=== PATIENT | male | born 1985 | race Asian ===

== ENCOUNTER 2017-11-06 20:54 | Emergency (ER) | payer MEDICARE, OTHER ==
[~2017-11-06] VITALS: Ht 162.6 cm; Wt 81.0 kg
[~2017-11-06 20:54] MED LIST: AMBI5TAB PO; HALO10 PO; HALO100P IM; LORA.5 PO; OXCA300 PO
[2017-11-06 21:01] VITALS: BP 135/90; PULSE 130; RESP 18; TEMP 98.3; O2SAT 100
[2017-11-07 02:47] LABS: AUTOMATED NEUTROPHIL # 9.3 TH/MM3 (1.8-7.7); BASOPHIL # 0.1 TH/MM3 (0-0.2); BASOPHIL % 0.6 % (0.0-2.0); EOSINOPHIL # 0.1 TH/MM3 (0-0.4); EOSINOPHIL % 0.4 % (0.0-4.0); HEMATOCRIT 45.4 % (39.0-51.0); HEMOGLOBIN 15.7 GM/DL (13.0-17.0); LYMPH % 15.9 % (9.0-44.0); LYMPHOCYTE # 2.1 TH/MM3 (1.0-4.8); MEAN CELL VOLUME 89.5 FL (80.0-100.0); MEAN CORPUSCULAR HGB CONC 34.7 % (32.0-36.0); MEAN PLATELET VOLUME 9.2 FL (7.0-11.0); MONO % 11.2 % (0.0-8.0); MONOCYTE # 1.4 TH/MM3 (0-0.9); NEUT % 71.9 % (16.0-70.0); PLATELET COUNT 298 TH/MM3 (150-450); RED BLOOD COUNT 5.07 MIL/MM3 (4.50-5.90); RED CELL DISTRIBUTION WIDTH 13.7 % (11.6-17.2); WHITE BLOOD COUNT 12.9 TH/MM3 (4.0-11.0)
--- NOTE | 2017-11-07 03:02 | RADRPT ---
EXAM DATE/TIME: 11/07/2017 02:28 [place] COMPARISON: No previous studies available for comparison. INDICATIONS : Short of breath and chest pain. MEDICAL HISTORY : Hypertension. SURGICAL HISTORY : None. ENCOUNTER: Initial ACUITY: 1 day PAIN SCORE: 9/10 LOCATION: Left chest FINDINGS: A single view of the chest demonstrates the lungs to be symmetrically aerated without evidence of mas s, infiltrate or effusion. The cardiomediastinal contours are unremarkable. Osseous structures are intact. CONCLUSION: No acute disease. Parag Alvarado MD on November 07, 2017 at 3:00 Board Certified Radiologist. This report was verified electronically.
--- NOTE | 2017-11-07 03:13 | PD ---
HPI Chief Complaint: Chest Pain Time Seen by Provider: 02:40 Travel History International Travel<30 days: No Contact w/Intl Traveler<30days: No Traveled to known affect area: No History of Present Illness HPI 32-year-old male presents to the emergency department for complaint of heart racing. Patient admits to history of schizophrenia and bipolar disorder and anxiety. Patient states his been taking his medications as prescribed. Patient denies any chest pain or shortness of breath. Patient denies any injury or fall. Patient denies any fever or chills. Patient presents to the emergency department because he was concerned that he might be having a heart attack. Patient denies any substance use. Patient does admit to increased and excessive caffeine use. No prior history of thyroid dysfunction. Patient rates his discomfort 0-2/10 in intensity. Patient's had no recent long distance travel, protracted bedrest, surgical procedure; no personal history or family history of connective tissue disorder or clotting disorder. Patient denies pleuritic chest pain and no hemoptysis. PFSH Past Medical History Narrative Medical Bipolar disorder schizophrenia hypertension no surgeries alcohol use tobacco use ; nursing notes reviewed Bipolar Disorder: Yes Depression: Yes Cardiovascular Problems: Yes (HTN) Diminished Hearing: No Genitourinary: No Headaches: Yes Musculoskeletal: No Neurologic: No Psychiatric: Yes (SCHIZOAFFECTIVE DISORDER) Reproductive: No Respiratory: No Immunizations Current: No Schizophrenia: Yes Past Surgical History Surgical History: No Previous Surgery Other Surgery: No Social History Alcohol Use: Yes (OCC) Tobacco Use: Yes (6 CIGARRETTES) Substance Use: No Allergies-Medications (Allergen,Severity, Reaction): Coded Allergies: divalproex sodium (Unverified Allergy, Severe, 11/06/17) milk (Unverified Adverse Reaction, Intermediate, DIARRHEA WITH COWS MILK, 11/06/17) Reported Meds & Prescriptions Reported Meds & Active Scripts Active Haldol (Decanoate) 100 mg Ampule (Haloperidol Decanoate) 100 Mg/Ml Inj 300 Mg IM Q28D Next dose of Haldol Dec due on 04/09/2016. Ambien (Zolpidem Tartrate) 5 Mg Tab 5 Mg PO HS PRN Haldol (Haloperidol) 10 Mg Tab 10 Mg PO BID 10 Days Continue oral Haldol until your next Haldol Decanoate injection or as instructed by your outpatient provider. Trileptal 300 Mg Tab (Oxcarbazepine) 300 Mg Tab 300 Mg PO BID 10 Days Lorazepam 0.5 Mg Tab 0.5 Mg PO DIRECTED Take 1 tablet by mouth twice daily. Also may take additional 1 tab daily as needed for anxiety/agitation. Note to pharmacist: Pt may fill the refill as early as 15 days from initial fill if PRN use has been required. Review of Systems Except as stated in HPI: all other systems reviewed are Neg General / Constitutional: No: Fever HENT: No: Headaches, Congestion Cardiovascular: Positive: Palpitations, Tachycardia, No: Chest Pain or Discomfort Respiratory: No: Shortness of Breath Gastrointestinal: No: Vomiting, Abdominal Pain Genitourinary: No: Flank Pain Musculoskeletal: No: Myalgias, Arthralgias Skin: No Rash Neurologic: No: Weakness Psychiatric: Positive: Anxiety Hematologic/Lymphatic: No: Lymph Node Enlargement Physical Exam Narrative GENERAL: Well-developed well-nourished male no acute distress no respiratory distress SKIN: Warm and dry. HEAD: Normocephalic. EYES: No scleral icterus. No injection or drainage. NECK: Supple, trachea midline. No JVD or lymphadenopathy. CARDIOVASCULAR: Regular rate and rhythm without murmurs, gallops, or rubs. RESPIRATORY: Breath sounds equal bilaterally. No accessory muscle use. GASTROINTESTINAL: Abdomen soft, non-tender, nondistended. MUSCULOSKELETAL: No cyanosis, or edema. BACK: Nontender without obvious deformity. No CVA tenderness. Data Data Last Documented VS Vital Signs Date Time Temp Pulse Resp B/P (MAP) Pulse Ox O2 Delivery O2 Flow Rate FiO2 11/06/17 21:01 98.3 130 18 135/90 (105) 100 Room Air Orders Orders Electrocardiogram (11/06/17 ) Chest, Single Ap (11/07/17 ) Complete Blood Count With Diff (11/07/17 02:05) Basic Metabolic Panel (Bmp) (11/07/17 02:05) Creatine Kinase (Cpk) (11/07/17 02:05) Troponin I (11/07/17 02:05) Thyroid Stimulating Hormone (11/07/17 02:05) Ed Discharge Order (11/07/17 04:01) Nitrofurantoin Monohyd Macrocr (Macrobid (11/07/17 04:15) Labs Laboratory Tests Test 11/07/17 02:05 White Blood Count 12.9 TH/MM3 Red Blood Count 5.07 MIL/MM3 Hemoglobin 15.7 GM/DL Hematocrit 45.4 % Mean Corpuscular Volume 89.5 FL Mean Corpuscular Hemoglobin 31.0 PG Mean Corpuscular Hemoglobin Concent 34.7 % Red Cell Distribution Width 13.7 % Platelet Count 298 TH/MM3 Mean Platelet Volume 9.2 FL Neutrophils (%) (Auto) 71.9 % Lymphocytes (%) (Auto) 15.9 % Monocytes (%) (Auto) 11.2 % Eosinophils (%) (Auto) 0.4 % Basophils (%) (Auto) 0.6 % Neutrophils # (Auto) 9.3 TH/MM3 Lymphocytes # (Auto) 2.1 TH/MM3 Monocytes # (Auto) 1.4 TH/MM3 Eosinophils # (Auto) 0.1 TH/MM3 Basophils # (Auto) 0.1 TH/MM3 CBC Comment DIFF FINAL Differential Comment Blood Urea Nitrogen 7 MG/DL Creatinine 1.06 MG/DL Random Glucose 85 MG/DL Calcium Level 8.8 MG/DL Sodium Level 142 MEQ/L Potassium Level 3.8 MEQ/L Chloride Level 103 MEQ/L Carbon Dioxide Level 30.0 MEQ/L Anion Gap 9 MEQ/L Estimat Glomerular Filtration Rate 81 ML/MIN Total Creatine Kinase 234 U/L Troponin I LESS THAN 0.02 NG/ML Thyroid Stimulating Hormone 3rd Gen 2.450 uIU/ML [facility] Medical Decision Making Medical Screen Exam Complete: Yes Emergency Medical Condition: Yes Medical Record Reviewed: Yes Interpretation(s) EKG sinus tachycardia no acute ST elevation injury pattern or ectopy noted Chest x-ray: No acute process CBC & BMP Diagram 11/07/17 02:05 Calcium Level 8.8 Vital Signs Date Time Temp Pulse Resp B/P (MAP) Pulse Ox O2 Delivery O2 Flow Rate FiO2 11/06/17 21:01 98.3 130 18 135/90 (105) 100 Room Air TSH: Values in normal range Troponin I less than 0.02 Differential Diagnosis Palpitations, anxiety, electrolyte disturbance, dehydration, adverse medication reaction, ACS, PE Narrative Course IV access obtained specimens collected and sent for resulting EKG reveals no acute injury pattern patient is now in sinus rhythm with controlled rate presented with mild sinus tachycardia electrolytes are found to be in normal range cardiac enzymes are negative TSH is within normal limits chest x-ray reveals no acute abnormality patient is stable for outpatient management Diagnosis Primary Impression: Palpitations Referrals: Primary Care Physician call for appointment Patient Instructions: General Instructions Additional Instructions: Follow-up with your primary care provider Decrease the amount of caffeine ingestion Return to the emergency department for any concerns or change in condition Med/Other Pt SpecificInfo: No Change to Meds Disposition: 01 DISCHARGE HOME Condition: Stable Aline Barroso MD Nov 07, 2017 03:13
[2017-11-07 03:27] LABS: BLOOD UREA NITROGEN 7 MG/DL (7-18); CALCIUM 8.8 MG/DL (8.5-10.1); CHLORIDE 103 MEQ/L (98-107); CREATININE 1.06 MG/DL (0.60-1.30); GLOMERULAR FILTRATION RATE 81 ML/MIN (>89); GLUCOSE,RANDOM 85 MG/DL (74-106); SODIUM (NA) 142 MEQ/L (136-145); TROPONIN I LESS THAN 0.02 NG/ML (0.02-0.05)
[2017-11-07 04:06] VITALS: BP 119/92; PULSE 99; RESP 18; O2SAT 100
[2017-11-07] MEDS ORDERED: NITROFURANTOIN MONOHYD MACROCR 100 MG CAP PO ONE (04:15)
--- NOTE | 2017-11-07 19:42 | EKG ---
Date Performed: 11/06/2017 Time Performed: 21:19:59 PTAGE: 32 years EKG: SINUS TACHYCARDIA NONSPECIFIC ST & T-WAVE ABNORMALITY ABNORMAL ECG NO PREVIOUS TRACING DOCTOR: Tad Snider Interpretating Date/Time 11/07/2017 19:41:23
== END 2017-11-07 04:39 | disposition home or self-care (01) ==
LOC: NEPC 20:54
DX: R00.2 Palpitations (principal); R00.0 Tachycardia, unspecified; I10 Essential (primary) hypertension; F20.9 Schizophrenia, unspecified; F31.9 Bipolar disorder, unspecified; F41.9 Anxiety disorder, unspecified; F17.210 Nicotine dependence, cigarettes, uncomplicated; Z79.899 Other long term (current) drug therapy
CPT/HCPCS: 71045; 80048; 82550; 84443; 84484; 85025; 93005; 99285